=== PATIENT | male | born 1995 | race Caucasian/White ===

== ENCOUNTER 2017-04-01 21:17 | Emergency (ER) | payer OTHER ==
--- NOTE | 2017-04-01 21:24 | PDOC ---
History of Present Illness - History of Present Illness Initial Comments: 04/01/17 21:33 The patient is a 21 year old male, with a significant past medical history hypothyroid, ADD, migraines, and TMJ, who presents to the emergency department with persistent headaches and intermittent nausea s/p being hit in the forehead while boxing yesterday at 8PM. He reports he was wearing padded boxing gloves, as was his partner, and reports being hit in the forehead. He states he continued to box despite feeling like my brain rattled inside, and reports developing a diffuse, constant headache since. He reports feeling as if blood rushed to his head when he bent over today. He denies loss of consciousness. He states his current headache is unlike his experiences with migraines. He denies visual changes. He denies chest pain, shortness of breath, and dizziness. He denies fever, chills, vomit, diarrhea and constipation. He denies dysuria, frequency, urgency and hematuria. Allergies: NKDA Social history: Pt denies toxic habits PCP - Dr. Croft <Ellen Jay - Last Filed: 04/01/17 21:46> <Mary Romero - Last Filed: 04/02/17 04:14> - General Chief Complaint: Headache Stated Complaint: HEADACHE Time Seen by Provider: 04/01/17 21:22 Past History <Ellen Jay - Last Filed: 04/01/17 21:46> - Immunization History Td Vaccination: Yes Immunization Up to Date: Yes - Psycho/Social/Smoking Cessation Hx Anxiety: No Suicidal Ideation: No Smoking Status: No Smoking History: Never smoked Number of Cigarettes Smoked Daily: 0 Cigars Per Day: 0 Hx Alcohol Use: No <Mary Romero - Last Filed: 04/02/17 04:14> - Past Medical History Allergies/Adverse Reactions: Allergies Allergy/AdvReac Type Severity Reaction Status Date / Time Penicillins Allergy Verified 05/21/14 19:05 Home Medications: Ambulatory Orders Dextroamphetamine/Amphetamine [Adderall Xr 20 mg Capsule] 20 mg PO DAILY Review of Systems - Review of Systems Able to Perform ROS?: Yes Comments:: 04/01/17 21:33 CONSTITUTIONAL: Absent: fever, chills, diaphoresis, generalized weakness, malaise, loss of appetite HEENT: Absent: rhinorrhea, nasal congestion, throat pain, throat swelling, difficulty swallowing,mouth swelling, ear pain, eye pain, visual Changes CARDIOVASCULAR: Absent: chest pain, syncope, palpitations, irregular heart rate, lightheadedness , peripheral edema RESPIRATORY: Absent: cough, shortness of breath, dyspnea with exertion, orthopnea, wheezing, stridor, hemoptysis GASTROINTESTINAL: Absent: abdominal pain, abdominal distension, nausea, vomiting, diarrhea, constipation, melena, hematochezia GENITOURINARY: Absent: dysuria, frequency, urgency, hesitancy, hematuria, flank pain, genital pain MUSCULOSKELETAL: Absent: myalgia, arthralgia, joint swelling SKIN: Absent: rash, itching, pallor HEMATOLOGIC/IMMUNOLOGIC: Absent: easy bleeding, easy bruising, lymphadenopathy, frequent infections ENDOCRINE: Absent: unexplained weight gain, unexplained weight loss, heat intolerance, cold intolerance NEUROLOGIC: (+) headache, Absent:focal weakness or paresthesias, dizziness, unsteady gait, seizure, mental status changes, bladder or bowel incontinence PSYCHIATRIC: Absent: anxiety, depression, suicidal or homicidal ideation, hallucinations. <Ellen Jay - Last Filed: 04/01/17 21:46> *Physical Exam - Vital Signs Last Vital Signs Temp Pulse Resp BP Pulse Ox 98 F 52 L 16 141/83 100 04/01/17 21:25 04/01/17 21:25 04/01/17 21:25 04/01/17 21:25 04/01/17 21:25 - Physical Exam Comments: 04/01/17 21:34 GENERAL: The patient is awake, alert, and fully oriented, in no acute distress. HEAD: Normal with no signs of trauma. EYES: Pupils equal, round and reactive to light, extraocular movements intact, sclera anicteric, conjunctiva clear with no pallor. ENT: Ears normal, nares patent, oropharynx clear without exudates. Moist mucous membranes. NECK: Normal range of motion, supple without lymphadenopathy, JVD, or masses. Non-tender to palpation. LUNGS: Breath sounds equal, clear to auscultation bilaterally. No wheeze/ crackles. HEART: Regular rate and rhythm, normal S1 and S2 without murmur or rub. ABDOMEN: Soft/nontender/nondistended. BS wnl. No guarding or rebound. No palpable masses. No hepatosplenomegaly. EXTREMITIES: Normal range of motion, no edema. No clubbing or cyanosis. No cords , erythema, or tenderness. NEUROLOGICAL: Cranial nerves II through XII grossly intact. Normal speech, normal gait. Sensation intact to light touch. No pronator drift. Muscle Strength 5/5 in all extremities. PSYCH: Normal mood, normal affect. SKIN: Warm, Dry, normal turgor, no rashes or lesions noted. <Ellen Jay - Last Filed: 04/01/17 21:46> Progress Note - Progress Note Progress Note: Documentation has been prepared under my direction and personally reviewed by me in its entirety. I attest that this documented accurately reflects all work, treatment, procedures and medical decision making performed by me. <Mary Romero - Last Filed: 04/02/17 04:14> Medical Decision Making - Medical Decision Making As noted above, this 21-year-old man presents with persistent headache after direct blow to the frontal area of his head yesterday (patient was boxing) Although the patient initially reported no associated symptoms with this headache, he admitted mild nausea. Exam as noted. Because of the persistence in pain and associated nausea, noncontrast head CT was performed to evaluate for acute intracranial pathology or skull fracture. Noncontrast head CT shows no evidence of acute intracranial process or fracture. Patient was discharged with instructions to return to ER if he has any worsening of his symptoms. Although acetaminophen was offered to the patient for analgesia, he refused, stating that he preferred not to use any medication. Patient asked specifically about attending further [email or web address] class tomorrow and was advised not to engage in any strenuous activity for the next 24 hours. He should follow-up with his general medical doctor within the next several days. <Mary Romero - Last Filed: 04/02/17 04:14> *DC/Admit/Observation/Transfer - Attestations Scribe Attestion: 04/01/17 21:39 Documentation prepared by Ellen Jay, acting as resident medical officer for Mary Romero MD <Ellen Jay - Last Filed: 04/01/17 21:46> <Mary Romero - Last Filed: 04/02/17 04:14> Diagnosis at time of Disposition: Forehead contusion Qualifiers: Encounter type: initial encounter Qualified Code(s): S00.83XA - Contusion of other part of head, initial encounter Closed head injury Qualifiers: Encounter type: initial encounter Qualified Code(s): S09.90XA - Unspecified injury of head, initial encounter - Discharge Dispostion Disposition: HOME Condition at time of disposition: Stable - Referrals Referrals: Sebastian Croft [Primary Care Provider] - - Patient Instructions Printed Discharge Instructions: DI for Closed Head Injury Additional Instructions: No strenuous exercise tomorrow Tylenol as needed for headache Return to ER if you have severe headache or vomiting Follow-up with your general doctor within the next 5 days
[2017-04-01 21:49] VITALS: BP 141/83; PULSE 52; TEMP 98; BMI 26.4
== END 2017-04-01 23:06 | disposition home or self-care (01) ==
LOC: FER 21:17
DX: S00.83XA Contusion of other part of head, initial encounter (principal); S09.90XA Unspecified injury of head, initial encounter; W50.0XXA Accidental hit or strike by another person, initial encounter; Y93.71 Activity, boxing; Y92.9 Unspecified place or not applicable; E03.9 Hypothyroidism, unspecified; F98.8 Other specified behavioral and emotional disorders with onset usually occurring in childhood and adolescence; M26.609 Unspecified temporomandibular joint disorder, unspecified side
CPT/HCPCS: 70450-TC; 99281-25